=== PATIENT | male | born 1995 | race Caucasian/White ===

== ENCOUNTER 2022-01-21 09:34 | Inpatient (IN) | payer OTHER ==
[~2022-01-21] VITALS: Ht 182.9 cm; Wt 86.2 kg
[2022-01-21 10:29] LABS: BASOPHILS ABSOLUTE AUTO 0.06 K/mm3 (0.00-0.23); BASOPHILS PERCENT AUTO 0 % (0-2); EOSINOPHILS ABSOLUTE AUTO 0.07 K/mm3 (0.00-0.68); EOSINOPHILS PERCENT AUTO 1 % (0-6); Hematocrit 43.8 % (37.0-53.0); Hemoglobin 15.4 g/dL (13.5-17.5); IMMATURE GRAN ABSOLUTE AUTO 0.06 K/mm3 (0.00-0.10); IMMATURE GRAN PERCENT AUTO 0 % (0-1); LYMPHOCYTES ABSOLUTE AUTO 1.52 K/mm3 (0.84-5.20); LYMPHOCYTES PERCENT AUTO 10 % (21-46); MONOCYTES ABSOLUTE AUTO 1.33 K/mm3 (0.16-1.47); MONOCYTES PERCENT AUTO 9 % (4-13); Mean Corpuscular HGB 30.9 pg (26.0-34.0); Mean Corpuscular HGB Conc 35.2 g/dL (31.5-36.5); Mean Corpuscular Volume 88 fL (80-100); Mean Platelet Volume 10.2 fL (9.1-12.4); NEUTROPHILS ABSOLUTE AUTO 11.52 K/mm3 (1.96-9.15); NEUTROPHILS PERCENT AUTO 79 % (41-73); Platelet Count 454 K/mm3 (150-400); RDW Coefficient Variation 12.5 % (11.7-14.2); RDW Standard Deviation 39.7 fL (35.1-46.3); Red Blood Cell Count 4.99 M/mm3 (4.30-5.90); White Blood Cell Count 14.56 K/mm3 (4.00-11.30)
[2022-01-21 10:55] LABS: Anion Gap 4 mmol/L (6-16); Blood Urea Nitrogen 9 mg/dL (8-24); Bun/Creatinine Ratio 10.5 (12.0-20.0); CO2, Blood 30 mmol/L (21-32); Calcium, Blood 9.8 mg/dL (8.5-10.1); Chloride, Blood 104 mmol/L (98-108); Creatinine, Blood 0.86 mg/dL (0.60-1.20); Glomerular Filtration Rate >60 (60-); Glucose, Blood 109 mg/dL (70-99); Potassium, Blood 4.5 mmol/L (3.5-5.5); Sodium, Blood 138 mmol/L (136-145)
--- NOTE | 2022-01-21 16:01 | NUR ---
PATIENT ARRIVED TO THE MEDICAL FLOOR ROOM 342 FROM THE ED. HE AMBULATED WITHOUT ASSISTANCE AND WITH OUT DEVICE ACCOMPANIED BY [employer]. PATIENT ORIENTED TO ROOM AND UNIT. ADMIT COMPLETE, SEE ASSESSMENT FOR DETAILS. FLUIDS STARTED PER ORDERS X3L. PATIENT ALERT AND ORIENTED. WILL CONT TO MONITOR.
--- NOTE | 2022-01-21 18:17 | NUR ---
SHIFT SUMMARY NO ACUTE CHANGES SINCE ADMIT. PATIENT IS ALERT AND ORIENTED, ABLE TO MAKE NEEDS KNOWN. HE COOPERATIVE WITH CARE. HE IS INDEPENDENT IN THE ROOM. IV FLUID BOLUS CURRENTLY INFUSING. VISITORS PRESENT AT BEDSIDE. WILL CONT TO TO MONITOR AND REPORT OFF TO FORM LAYER RN.
[2022-01-22 04:53] LABS: BASOPHILS ABSOLUTE AUTO 0.01 K/mm3 (0.00-0.23); BASOPHILS PERCENT AUTO 0 % (0-2); EOSINOPHILS PERCENT AUTO 0 % (0-6); Hematocrit 37.7 % (37.0-53.0); Hemoglobin 12.6 g/dL (13.5-17.5); IMMATURE GRAN ABSOLUTE AUTO 0.05 K/mm3 (0.00-0.10); IMMATURE GRAN PERCENT AUTO 0 % (0-1); LYMPHOCYTES ABSOLUTE AUTO 0.89 K/mm3 (0.84-5.20); LYMPHOCYTES PERCENT AUTO 7 % (21-46); MONOCYTES ABSOLUTE AUTO 0.41 K/mm3 (0.16-1.47); MONOCYTES PERCENT AUTO 3 % (4-13); Mean Corpuscular HGB 29.9 pg (26.0-34.0); Mean Corpuscular HGB Conc 33.4 g/dL (31.5-36.5); Mean Corpuscular Volume 90 fL (80-100); Mean Platelet Volume 9.3 fL (9.1-12.4); NEUTROPHILS ABSOLUTE AUTO 10.61 K/mm3 (1.96-9.15); NEUTROPHILS PERCENT AUTO 89 % (41-73); Platelet Count 324 K/mm3 (150-400); RDW Coefficient Variation 12.2 % (11.7-14.2); RDW Standard Deviation 40.3 fL (35.1-46.3); Red Blood Cell Count 4.21 M/mm3 (4.30-5.90); White Blood Cell Count 11.97 K/mm3 (4.00-11.30)
--- NOTE | 2022-01-22 05:03 | NUR ---
SHIFT SUMMARY AOX4. VSS. DENIES ANY PAIN @REST. REPORTS 4-03/13 PAIN c PALPATION OF R JAW, DENIES NEED FOR ANY MEDICATION. DENIES N/V OR DYSPNEA. STATES HE FEELS SWELLING HAS GONE DOWN SINCE ADMIT & IS ABLE TO TOLERATE PO INTAKE. R JAW/SIDE OF FACE SWOLLEN & WARM TO TOUCH COMPARED TO L JAW. RECIEVING IV ANTIBIOTICS & DECADRON. CALL LIGHT IN REACH & PT ABLE TO MAKE NEEDS KNOWN.
[2022-01-22 05:12] LABS: Anion Gap 3 mmol/L (6-16); Blood Urea Nitrogen 11 mg/dL (8-24); Bun/Creatinine Ratio 16.4 (12.0-20.0); CO2, Blood 27 mmol/L (21-32); Calcium, Blood 9.2 mg/dL (8.5-10.1); Chloride, Blood 107 mmol/L (98-108); Creatinine, Blood 0.67 mg/dL (0.60-1.20); Glomerular Filtration Rate >60 (60-); Glucose, Blood 138 mg/dL (70-99); Potassium, Blood 4.2 mmol/L (3.5-5.5); Sodium, Blood 137 mmol/L (136-145)
--- NOTE | 2022-01-22 10:04 | NUR ---
PT PLEASANT AND COOPERATIVE. DENIES PAIN. A/O X3. H/R REGUALR IN 80'S. NO MURMUR NOTED. LUNG SOUNDS CLEAR BILATERALLY. BREATHING IS EASY AND UNLABORED. ON ROOM AIR. PER PT LAST BOWEL MOVEMENT WAS THIS MORNING. HYPERACTIVE BOWEL SOUNDS. AMBULATES TO RESTROOM INDEPENDENTLY. REQUESTED NOCOTEINE PATCH. DR WINTERS TO PUT IN ORDER. BED IN LOW POSITION, CALL LIGHT IN REACH, CALLS APPROPRATIELY.
--- NOTE | 2022-01-22 14:01 | NUR ---
PT PLEASANT COOP A/O X3. DENIES PAIN AT THIS TIME. JAW SLIGHTLY INFLAMED. H/R REG, NO MURMUR NOTED. NO TELE. LUNGS CLEAR, RESP EASY, UNLABORED. ON R.A. BT X4 LAST BM YEST. VOIDS INDEPENDANT IN BATHROOM. STATES ONE MORE DAY ABX IV THEN EXPECTING D/C TOMORROW.BED IN LOW POSITION, CALL LITE IN REACH, CALLS APROP
--- NOTE | 2022-01-22 18:23 | NUR ---
PT PLEASANT AND COOPERATIVE. A/O X4. DENIES PAIN. H/R REGULAR. NO TELE. LUNG SOUNDS CLEAR BILATERALLY. ON ROOM AIR. BREATHING IS EASY AND UNLABORED. AMBULATES TO RESTROOM INDEPENDENTLY. BED IN LOW POSITION, CALL LIGHT IN REACH, CALLS APPROPRIALTY.
--- NOTE | 2022-01-22 18:26 | NUR ---
AGREE WITH STUDENT RN NOTES.
--- NOTE | 2022-01-23 05:23 | NUR ---
SHIFT SUMMARY NO ACUTE CHANGES OVERNIGHT. PT SLEPT GOOD OVERNIGHT. IV ABX X2 GIVEN. TOLERATES PO INTAKE DENIES N/V. VSS. AOX4. IND IN ROOM. PLAN FOR PT TO GO HOME TODAY. CALL LIGHT WITHIN REACH. WILL PROVIDE REPORT TO ONCOMING NURSE.
--- NOTE | 2022-01-23 08:17 | NUR ---
PT PLEASANT AND COOPERATIVE. A/O X4 DECLINES PAIN. H/R REGULAR IN 80'S. NO TELE. NO MURMUR NOTED. LUNGS CLEAR BILATERALLY. BREATHING IS EASY AND UNLABORED. ON ROOM AIR. BOWEL SOUNDS PRESENT. PER PT LAST BOWEL MOVEMENT WAS YESTERDAY. AMBULATES INDEPENDENTLY TO RESTROOM. LIKELY DISCHARGE AFTER HE RECIEVES HIS ANTIBIOTIC. BED IN LOW POSITION, CALL LIGHT IN REACH, CALLS APPROPRIALTY.
[2022-01-23] MEDS ORDERED: LACT PO (12:51)
[2022-01-23] MEDS ORDERED: CLIN150 PO (12:53)
--- NOTE | 2022-01-23 14:20 | NUR ---
DISCHARGE REVIEWED WITH PT. HE VERBALIZED UNDERSTANDING MEDS AND INST. IV PULLED INTACT. NO TELE. PT WAITING FOR RIDE.
--- NOTE | 2022-01-23 14:24 | NUR ---
PT WLKED TO DOOR AT 1427 BY STUDENT RN
== END 2022-01-23 14:42 | disposition home or self-care (01) | DRG 872 ==
LOC: ER 09:34 → MEDS 09:35
PROVIDERS: Family Medicine; Physician Assistant; ADMIT Internal Medicine
DX: A41.9 Sepsis, unspecified organism (principal); K12.2 Cellulitis and abscess of mouth; K04.7 Periapical abscess without sinus; M27.2 Inflammatory conditions of jaws; Z87.891 Personal history of nicotine dependence
CPT/HCPCS: 36415; 70491; 80048; 83605; 85025; 87040; 96365; 96375; 96376; 99284-25; A9270; G0378; J1100; J7030; Q9967